=== PATIENT | female | born 2000 | race Asian ===

== ENCOUNTER 2023-09-02 12:49 | Emergency (ER) | payer MEDICAID ==
[~2023-09-02] VITALS: Ht 170.2 cm; Wt 77.1 kg
[2023-09-02 13:02] VITALS: BP 113/75; PULSE 88; RESP 18; TEMP 98.3; O2SAT 100
[2023-09-02 13:14] VITALS: O2SAT 100
[2023-09-02] MEDS ORDERED: IBUP-2218 PO (13:49)
[2023-09-02 14:05] VITALS: BP 113/75; PULSE 88; RESP 18; TEMP 98.3; O2SAT 100
[2023-09-02] MEDS: IBUPROFEN 800 MG TAB PO ONE (14:12)
== END 2023-09-02 14:05 | disposition home or self-care (01) ==
LOC: MED 12:49
DX: S93.402A Sprain of unspecified ligament of left ankle, initial encounter (principal); Z79.1 Long term (current) use of non-steroidal anti-inflammatories (NSAID); W18.30XA Fall on same level, unspecified, initial encounter; Y93.89 Activity, other specified; Y92.89 Other specified places as the place of occurrence of the external cause; Y99.8 Other external cause status
CPT/HCPCS: 73610; 73630; 81025; 99284